=== PATIENT | male | born 1945 | race Caucasian/White ===

== ENCOUNTER 2023-12-13 19:06 | Emergency (ER) | payer MEDICARE, SELFPAY ==
[2023-12-13 19:21] VITALS: BP 154/77; PULSE 77; RESP 15; TEMP 36.8; O2SAT 98
--- NOTE | 2023-12-13 19:45 | DI.RAD_ITS ---
Exam(s) XR ANKLE RT COMPLETE EXAM: XR ANKLE RT COMPLETE CLINICAL HISTORY: Injury. TECHNIQUE: 2D digital imaging was performed. Three views. COMPARISON: No exams were available for comparison FINDINGS: BONES: Minimally displaced oblique fracture through the lateral malleolus extending to the level of t he ankle mortise. No additional fractures. No bony destructive lesion is seen. JOINTS: Slight widening of medial ankle mortise. Mild degenerative changes. SOFT TISSUE: Swelling over lateral malleolus. IMPRESSION: Minimally displaced lateral malleolar fracture and mild widening of the medial ankle mortise. DATA REPOSITORY: RADIATION DOSE DELIVERED:
--- NOTE | 2023-12-13 20:46 | DI.VRAD_ITS ---
PROCEDURE INFORMATION: Exam: XR Right Ankle Exam date and time: 12/13/2023 8:18 PM Age: 78 years old Clinical indication: Injury or trauma; Fall; Blunt trauma; Ankle; Right TECHNIQUE: Imaging protocol: Radiologic exam of the right ankle. Views: 3 or more views. COMPARISON: No relevant prior studies available. FINDINGS: Bones/joints: There is a nondisplaced oblique fracture of the lateral malleolus extending upward from the level of the ankle mortise joint. No accompanying medial malleolar fracture. No widening of the ankle mortise joint. Soft tissues: Marked lateral soft tissue swelling. IMPRESSION: Lateral malleolar fracture. Dictated and Authenticated by: Taz Pugh MD. Ordering:FORREST Artis MD
--- NOTE | 2023-12-13 21:02 | ED.GENADUL_ITS ---
Discharge Plan Disposition Patient Disposition: Home Condition: Stable Discharge Details Clinical Impression: Ankle fracture, lateral malleolus, closed, Fall Primary Care Provider: Unknown,Unknown ED Provider: Georgie Ang Discharge Instructions Instructions: Ankle Fracture ED Additional Instructions: You were seen in the emergency department today for evaluation of an ankle injury. You are found to have a fracture of your lateral malleolus, the ankle bone on the outside. You are placed in a walking boot and can bear weight as tolerated on that foot. Please use Tylenol and ibuprofen for pain and ice and elevation for swelling. You need to follow-up with your orthopedic doctor when you get home to [place], or sooner if you have any numbness or weakness, worsening pain, or any other concerns. Thank you for allowing us to be part of your care. HPI General Mode of arrival: ambulatory . Date/Time Provider Initiated Documentation: 12/13/23 19:58 . Limitations to Documentation: no limitations . Information obtained by: patient and old records reviewed . HPI Narrative: MDM: This is a 78-year-old male patient without significant past medical history presenting for evaluation of right ankle injury after a fall. Differential includes but is not limited to fracture, dislocation, sprain. No evidence for neurovascular derangement, the patient reassuringly is without comorbid head, neck, back, or hip injury. The patient is ambulatory, with well-controlled pain. He is hemodynamically appropriate and neurovascularly intact. We will obtain an x-ray of the affected right ankle. ED Course: I independently interpreted the patient's ankle x-ray, which shows an isolated lateral malleolus fracture without significant displacement. I shared this finding with the patient, placed him in a walking boot and counseled him on weightbearing as tolerated precautions. He will follow-up with orthopedics in the next week or so to discuss this injury and any symptoms that change, worsen, or persist. At this time, the patient has had a full medical evaluation and is safe for discharge to home. They are hemodynamically stable, ambulatory, and tolerating PO. They are understanding of the follow-up plan and return precautions. They left our facility without incident. Georgie Ang MD HPI: This is a 78-year-old male patient presenting for evaluation of an ankle injury. The patient reports that he was walking down a wet leafy hill and he slipped, falling and believes that he twisted his ankle. He reports that during this fall he did not lose consciousness, strike his head, and did not sustain neck or back injury. The patient was able to walk after the event, but noted worsening swelling to the point where he was prompted to seek care. The patient reports no other pain besides his lateral right ankle. No numbness or tingling distal to this injury. Prior to this event he was in his normal state of health. Exam: Gen: Awake and alert, in no apparent distress HEENT: Non-icteric sclera Neck: Supple Lungs: No apparent respiratory distress, normal respiratory effort. CV: Appears well perfused Abdomen: Non-distended MSK: Moves 4 extremities without apparent limitation in ROM with the exception of the right ankle, which has swelling at the lateral aspect with tenderness along the posterior aspect of the lateral malleolus. The foot has no tenderness to palpation, strong DP pulses, adequate circulation distal to the injury. Skin: Visualized skin without rashes, cyanosis. Neuro: Antalgic gait, no obvious focal deficits or facial asymmetry. Speaks in full, clear sentences. Psych: Appropriate for situation. General Stated Complaint: Orthopedic RANDA: 4 Course Vital Signs Vital signs: Vital Signs Temperature 36.8 C 12/13/23 19:21 Pulse 77 12/13/23 19:21 Respiratory Rate 15 12/13/23 19:21 Blood Pressure 154/77 H 12/13/23 19:21 Pulse Oximetry 98 12/13/23 19:21 Temperature 36.8 C 12/13/23 19:21 Temperature Source Tympanic 12/13/23 19:21 Pulse 77 12/13/23 19:21 Respiratory Rate 15 12/13/23 19:21 Blood Pressure 154/77 H 12/13/23 19:21 Blood Pressure Position Sitting 12/13/23 19:21 Pulse Oximetry 98 12/13/23 19:21 Oxygen Delivery Method Room Air 12/13/23 19:21 Oxygen Flow Rate 0 12/13/23 19:21 Pain Level 7 12/13/23 19:21 Medical Decision Making Quality:SDOH Health Related Social Needs: No Data to Display PFSH All Active Problems (Updated 12/13/23 @ 21:04 by Georgie Ang MD) Fall (Acute) Ankle fracture, lateral malleolus, closed (Acute) Social History Smoking/Tobacco Use Status: Never Smoking risk assessment performed?: Yes Alcohol Intake: current Alcohol Intake frequency: holidays/special occasions only Substance use type: does not use
== END 2023-12-13 21:14 | disposition home or self-care (01) ==
PROVIDERS: Emergency Provider Emergency Medicine
DX: S82.61XA Displaced fracture of lateral malleolus of right fibula, initial encounter for closed fracture (principal); W19.XXXA Unspecified fall, initial encounter
CPT/HCPCS: 27786; 99283; 73610